=== PATIENT | male | born 1965 | race African-American/Black ===

== ENCOUNTER 2023-03-08 16:18 | Outpatient (CLI) | payer MEDICAID | END 2023-03-08 16:19 | disposition critical access hospital (66) | LOC: EMS 16:18 | DX: R47.1 Dysarthria and anarthria (principal); R53.1 Weakness; R29.810 Facial weakness | CPT/HCPCS: A0425; A0429; A0999 ==

== ENCOUNTER 2023-03-08 16:34 | Emergency (ER) | payer MEDICAID ==
--- NOTE | 2023-03-08 16:40 | ED Physician Documentation ---
PD HPI FOCAL NEURO - Stated complaint Stated Complaint: CODE STROKE - History obtained from History obtained from: EMS - Additional information Additional information: He reportedly has a history of stroke without deficits. His family went to the grocery store at 3 PM and he was in his normal condition. They returned around 4 and found him down on the ground with profound right-sided deficits. Patient is unable to give a history as he is mostly aphasic. He is in A-fib reportedly with a normal blood sugar prior to arrival. Review of his medications show that he is on Eliquis. PD PAST MEDICAL HISTORY - Allergies Allergies/Adverse Reactions: Allergies Allergy/AdvReac Type Severity Reaction Status Date / Time No Known Drug Allergies Allergy Verified 03/08/23 17:29 PD ED PE NORMAL - Vitals Vital signs reviewed: Yes - General General: No acute distress - HEENT HEENT: PERRL - Neck Neck: Supple, no meningeal sign, No bony TTP - Cardiac Cardiac: RRR, No murmur - Respiratory Respiratory: No respiratory distress, Clear bilaterally - Abdomen Abdomen: Non tender NIHSS - Time Time: 16:34 - Level of Consciousness Level of consciousness: (0) Alert, Keenly responsive LOC Questions: (2) Answers neither correct LOC Commands: (0) Performs both correctly - Gaze Best Gaze: (0) Normal - Visual Visual: (0) No loss - Facial Palsy Facial Palsy: (3) Complete paralysis - Motor Arms (both separate) Motor Arm (right): (4) No movement Motor Arm (left): (0) No drift - Motor Legs (both separate) Motor Leg (right): (2) Some effort against gravity Motor Leg (left): (0) No drift - Limb Ataxia Limb Ataxia: (0) Absent - Sensory Sensory: (1) Yqek-uk-vdjfeprr loss - Best Language Best Language: (2) Severe aphasia - Dysarthria Dysarthria: (2) Severe dysarthria - Extinction and Inattention (formally neg Extinction and inattention: (0) No abnormality - Total Score/Results Total Score/Result: 16 Results - Vitals Vitals: Vital Signs - 24 hr 03/08/23 03/08/23 03/08/23 16:54 17:30 18:33 Heart Rate 77 84 77 Respiratory 17 22 18 Rate Blood Pressure 145/103 H 164/114 H 156/76 H O2 Saturation 100 98 99 Oxygen O2 Source Room air - EKG (time done) 1647 EKG releavant findings:: EKG personally interpreted by author of this note. Relevant findings are: Rate: Rate (enter#) (72) Rhythm: Atrial fibrillation [place]: Normal QRS: Normal Ischemia: No: ST elevation c/w ischemia - Labs Labs: Laboratory Tests 03/08/23 03/08/23 03/08/23 16:50 16:50 16:50 WBC 4.7 L RBC 4.79 Hgb 14.6 Hct 46.4 MCV 96.9 H MCH 30.5 MCHC 31.5 L RDW 13.5 Plt Count 249 MPV 9.5 Neut # (Auto) 2.0 Lymph # (Auto) 2.1 [place] # (Auto) 0.4 Eos # (Auto) 0.1 Baso # (Auto) 0.0 Absolute Nucleated RBC 0.00 Nucleated RBC % 0.0 PT 13.3 H INR 1.2 Sodium 137 Potassium 4.0 Chloride 106 Carbon Dioxide 21 Anion Gap 10.0 BUN 15 Creatinine 1.0 Estimated GFR (MDRD) 77 L Glucose 125 H Calcium 9.0 Total Bilirubin 0.8 AST 36 ALT 38 Alkaline Phosphatase 62 Total Protein 7.2 Albumin 3.6 Globulin 3.6 Albumin/Globulin Ratio 1.0 Lipase 35 - Rads (name of study) CT angiography of the head and neck did show possible occlusion of the left M3 MCA. Relevant Findings:: Final report received, EMP independent interpretation of test CT of the head shows multiple areas of old encephalomalacia without bleed Relevant Findings:: Final report received, EMP independent interpretation of test PD Medical Decision Making - ED course ED course: 57-year-old gentleman presents for what appears to be an acute stroke with profound right-sided deficits. He is in A-fib and has Eliquis with his medications. Unable to query him as to compliance with that. After initial evaluation he went straight over to CT and we activated telestroke and I spoke with her neurologist, Dr. Gore who is seeing the patient immediately after return from CT. I did a pill count on his Eliquis, it was prescribed January 08 for 60 pills. So should almost be empty. There are still 49 out of 60 doses in it. Patient says he is compliant with it though. Or at least nods since he is aphasic. Neurologist wondered if we could get a factor Xa level, unfortunately the analyzer for that is down. subsequently arrived and says he has been compliant with his Eliquis but about 2 months ago went from twice daily down to daily. He had an older bottle and that is why the bottle we have at the bedside is still mostly full. Dr. Gore because of this did not feel tPA was appropriate. Recommended admission on aspirin and subsequent MRI. Subsequently the CT angiography came back with a branch MCA occlusion. I discussed again with Dr. Gore who arranged to have him excepted as a code IR to Dr. Almaraz's service at [facility]. - Critical Care Time(min): 45 Time Includes: Direct patient care, Review records, Reassess patient, Document care, Coordinate care, Medical consult, Family consult for tx dec Data interpretation: Labs, Pulse ox, See progress note Procedures included in critical care time: Peripheral IV Procedures excluded from critical care time: EKG Departure - Departure Disposition: 02 Transfer Acute Care Hosp Clinical Impression: CVA (cerebral vascular accident) Qualifiers: CVA mechanism: embolism Precerebral and cerebral artery: middle cerebral artery Laterality of affected vessel: left Qualified Code(s): I63.412 - Cerebral infarction due to embolism of left middle cerebral artery Condition: Critical
[2023-03-08] MEDS ORDERED: iohexoL-300 100 ML VIAL IVP ONE (16:51)
[2023-03-08 16:56] LABS: BASOPHILS % (AUTO) 0.6 %; EOSINOPHILS # (AUTO) 0.1 10^3/uL (0.0-0.7); EOSINOPHILS % (AUTO) 1.9 %; HCT - HEMATOCRIT 46.4 % (42.0-52.0); HGB - HEMOGLOBIN 14.6 g/dL (14.0-18.0); LYMPHOCYTES # (AUTO) 2.1 10^3/uL (1.5-3.5); LYMPHOCYTES % (AUTO) 45.9 %; MEAN CORPUSCULAR HEMOGLOBIN 30.5 pg (27.0-31.0); MEAN CORPUSCULAR HGB CONC 31.5 g/dL (32.0-36.0); MEAN CORPUSCULAR VOLUME 96.9 fL (80.0-94.0); MEAN PLATELET VOLUME 9.5 fL (7.4-11.4); MONOCYTES # (AUTO) 0.4 10^3/uL (0.0-1.0); MONOCYTES % (AUTO) 7.9 %; NEUTROPHILS % (AUTO) 43.5 %; PLT - PLATELET COUNT 249 10^3/uL (130-450); RED BLOOD COUNT 4.79 10^6/uL (4.70-6.10); RED CELL DISTRIBUTION WIDTH 13.5 % (12.0-15.0); WHITE BLOOD COUNT 4.7 x10^3/uL (4.8-10.8)
--- NOTE | 2023-03-08 17:06 | CT Report ---
PROCEDURE: Head W/O Stroke Protocol INDICATIONS: Neuro deficit, acute, stroke suspected TECHNIQUE: Noncontrast 4.5 mm thick angled axial sections acquired from the foramen magnum to the vertex, with c oronal reformats. For radiation dose reduction, the following was used: automated exposure control, adjustment of mA and/or kV according to patient size. COMPARISON: None. FINDINGS: Image quality: Excellent. CSF spaces: Basal cisterns are patent. No extra-axial fluid collections. Ventricles are normal in size and shape. Brain: No midline shift. No intracranial masses or hemorrhage. There are large areas in bilateral parietal and right temporal region of encephalomalacia and cortical volume loss consistent with prior strokes. There are lacunar infarcts in bilateral anterior frontal white matter tracts and left basal ganglia. No definite acute edema. Skull and face: Calvarium and visualized facial bones are intact, without suspicious lesions. Sinuses: Visualized sinuses are clear. Mastoids are hypoplastic. IMPRESSION: 1. No acute hemorrhage. 2. Large, remote right temporoparietal infarct. 3. Moderate-sized left parietal infarct with cortical volume loss. 3. No definite acute edema. 4. Findings of a background of moderate chronic microvascular ischemia. 5. Discussed with Dr. Swann in the emergency room at 1600 hours [place] daylight time. This study fulfills neurological imaging criteria for inclusion or exclusion of acute stroke therapie s based on available published neurological imaging guidelines. Reviewed by: Josselin Pierce MD on 03/08/2023 4:05 PM ELAINE Approved by: Josselin Pierce MD on 03/08/2023 4:05 PM ELAINE Station ID: [id number]
[2023-03-08 17:07] LABS: INR 1.2 (0.8-1.2); PT - PROTHROMBIN TIME 13.3 secs (9.9-12.6)
[2023-03-08 17:14] LABS: ALBUMIN 3.6 g/dL (3.2-5.5); BILIRUBIN,TOTAL 0.8 mg/dL (0.2-1.0); TOTAL PROTEIN 7.2 g/dL (6.7-8.2)
--- NOTE | 2023-03-08 17:17 | CT Report ---
PROCEDURE: ANGIO HEAD W/WO INDICATIONS: CVA CONTRAST: 80 ml omni 300 TECHNIQUE: After the administration of intravenous contrast, 1 mm thick sections acquired through the [place] of [place]. Postcontrast 4.5 mm thick sections then re-acquired from the foramen magnum to the vertex. 3-dimensional mpgcivw-tlsgwjwof-uzyyuzgwuv (MIP) and/or volume rendering reformats were acquired of [facility] central intracranial vasculature. For radiation dose reduction, the following was used: automate d exposure control, adjustment of mA and/or kV according to patient size. COMPARISON: None FINDINGS: Image quality: Excellent. Anterior circulation: Intracranial internal carotid arteries are normal in size and flow. The flow within the paired anterior cerebral arteries is normal and symmetric. Middle cerebral arteries and M1 and proximal M2 are patent. Extremely diminutive left M3 segment with probable occlusion at the dist al M2 segment. Right middle cerebral artery is patent. The anterior communicating artery is seen. No aneurysms are seen. Posterior circulation: Visualized portions of the vertebral arteries demonstrate normal caliber, and join to form a normal appearing basilar artery. Flow within the posterior cerebral arteries is norm al and symmetric. No aneurysms are seen. CSF spaces: Ventricles are normal in size and shape. Basal cisterns are patent. No extra-axial flu id collections. Brain: No midline shift. No intracranial bleeds or masses. [place]-white matter interface appears int act. Skull and face: Calvarium and facial bones appear intact, without suspicious lesions. Sinuses: Visualized sinuses and mastoids are clear. IMPRESSION: 1. A left M3 branch appears extremely diminutive and likely occluded. 2. No aneurysm. Reviewed by: Josselin Pierce MD on 03/08/2023 4:16 PM ELAINE Approved by: Josselin Pierce MD on 03/08/2023 4:16 PM AKAJIT [id number]
[2023-03-08] MEDS ORDERED: ASPIRIN 300 MG SUPP PR STA (17:19)
--- NOTE | 2023-03-08 17:22 | CT Report ---
PROCEDURE: ANGIO NECK W INDICATIONS: CVA CONTRAST: 80 ml omni 300 TECHNIQUE: After the administration of intravenous contrast, 1.5 mm axial sections acquired from the aortic arch to the [place] of [place]. Coronal 3-D maximum intensity projection (MIP) and/or volume rendering ref ormats were then performed. For radiation dose reduction, the following was used: automated exposur e control, adjustment of mA and/or kV according to patient size. COMPARISON: None. FINDINGS: Image quality: Excellent. Carotid system: The great vessels demonstrate a conventional anatomy as they arise from the aortic a rch. The origins of the common carotid arteries appear patent. The common carotid arteries demonstr ate normal calibers and courses. The bifurcation regions appear normal bilaterally. The internal ca rotid arteries demonstrate normal caliber and course. Posterior circulation: The origins of the vertebral arteries appear patent. The more superior porti ons of the vertebral arteries demonstrate normal course and caliber. They join to form a normal appe aring basilar artery. Soft tissues: Visualized neck soft tissues demonstrate no suspicious abnormalities. The thyroid is normal in size and there are no incidental findings. Bones: No suspicious bony lesions. Visualized cervical spine appears normally aligned. IMPRESSION: 1. No evidence of significant carotid stenosis or dissection. 2. Normal vertebral arteries without dissection. The estimate of stenosis included in the report of the imaging study was calculated using the NASCET method Reviewed by: Josselin Pierce MD on 03/08/2023 4:20 PM ELAINE Approved by: Josselin Pierce MD on 03/08/2023 4:20 PM ELAINE Station ID: [id number]
[2023-03-08 18:34] VITALS: BP 156/76
== END 2023-03-08 18:52 | disposition short-term general hospital (02) ==
LOC: ED 16:34
DX: I63.412 Cerebral infarction due to embolism of left middle cerebral artery (principal); R29.716 NIHSS score 16; I48.91 Unspecified atrial fibrillation; Z79.01 Long term (current) use of anticoagulants
CPT/HCPCS: 36415; 70450; 70496; 70498; 80053; 83690; 85025; 85610; 93005; 99285; 99291; A9270; Q9967; 85520

== ENCOUNTER 2023-04-17 10:14 | Outpatient (CLI) | payer MEDICAID ==
[2023-04-17 12:56] LABS: BASOPHILS % (AUTO) 0.9 %; EOSINOPHILS # (AUTO) 0.2 10^3/uL (0.0-0.7); EOSINOPHILS % (AUTO) 3.5 %; HCT - HEMATOCRIT 46.6 % (42.0-52.0); LYMPHOCYTES # (AUTO) 2.7 10^3/uL (1.5-3.5); LYMPHOCYTES % (AUTO) 62.3 %; MEAN CORPUSCULAR HEMOGLOBIN 30.4 pg (27.0-31.0); MEAN CORPUSCULAR HGB CONC 32.2 g/dL (32.0-36.0); MEAN CORPUSCULAR VOLUME 94.5 fL (80.0-94.0); MEAN PLATELET VOLUME 9.7 fL (7.4-11.4); MONOCYTES # (AUTO) 0.3 10^3/uL (0.0-1.0); MONOCYTES % (AUTO) 6.3 %; NEUTROPHILS # (AUTO) 1.2 10^3/uL (1.5-6.6); NEUTROPHILS % (AUTO) 26.8 %; PLT - PLATELET COUNT 242 10^3/uL (130-450); RED BLOOD COUNT 4.93 10^6/uL (4.70-6.10); RED CELL DISTRIBUTION WIDTH 11.8 % (12.0-15.0); WHITE BLOOD COUNT 4.3 x10^3/uL (4.8-10.8)
[2023-04-17 13:01] LABS: CREATININE,URINE 220.1 mg/dL; MICROALBUM/CREATININE RATIO,UR 13.6 ug/mg (<30.0)
[2023-04-17 13:23] LABS: ESTIMATED AVERAGE GLUCOSE 117 mg/dL (70-100); HEMOGLOBIN A1c% 5.7 % (4.27-6.07)
[2023-04-17 13:31] LABS: THYROID STIMULATING HORMONE 1.2 uIU/mL (0.34-5.60)
[2023-04-17 13:44] LABS: ALBUMIN 3.4 g/dL (3.2-5.5); ALBUMIN/GLOBULIN RATIO 0.8 (1.0-2.2); ALKALINE PHOSPHATASE 78 IU/L (42-121); ALT ALANINE AMINOTRANSFERASE 137 IU/L (10-60); AST ASPARTATE AMINOTRANSFERASE 50 IU/L (10-42); BILIRUBIN,TOTAL 0.6 mg/dL (0.2-1.0); BUN - BLOOD UREA NITROGEN 11 mg/dL (6-20); CALCIUM 9.3 mg/dL (8.5-10.3); CARBON DIOXIDE - CO2 27 mmol/L (21-32); CHLORIDE 108 mmol/L (101-111); CHOL/HDL RATIO 2.4 (<5.0); CHOLESTEROL 95 mg/dL; CREATININE 1.1 mg/dL (0.6-1.2); GFR - MDRD 84 (>89); GLUCOSE 125 mg/dL (70-100); HDL CHOLESTEROL 39 mg/dL; LDL CHOLESTEROL,CALCULATED 45 mg/dL; LDL/HDL RATIO 1.2 (<3.6); SODIUM 141 mmol/L (135-145); TOTAL PROTEIN 7.6 g/dL (6.7-8.2); TRIGLYCERIDES 53 mg/dL; VLDL CHOLESTEROL 11 mg/dL
== END 2023-04-17 10:15 | disposition home or self-care (01) ==
LOC: LAB.N 10:14
PROVIDERS: ATTEND Nurse Practitioner
DX: I10 Essential (primary) hypertension (principal); E78.5 Hyperlipidemia, unspecified; R73.03 Prediabetes; Z12.5 Encounter for screening for malignant neoplasm of prostate
CPT/HCPCS: 36415; 80053; 80061; 82043; 82570; 83036; 83721; 84153; 84443; 85025

== ENCOUNTER 2023-09-22 10:26 | Outpatient (CLI) | payer MEDICAID | END 2023-09-22 10:27 | disposition critical access hospital (66) | LOC: EMS 10:26 | DX: S01.511A Laceration without foreign body of lip, initial encounter (principal); R22.0 Localized swelling, mass and lump, head; W10.1XXA Fall (on)(from) sidewalk curb, initial encounter; Y92.414 Local residential or business street as the place of occurrence of the external cause | CPT/HCPCS: A0425; A0429; A0999 ==

== ENCOUNTER 2023-09-22 10:48 | Emergency (ER) | payer MEDICAID ==
[2023-09-22] MEDS ORDERED: LIDOCAINE-EPINEPH-TETRACAINE 3 ML SYRINGE TOP STA (11:04)
[2023-09-22 11:15] LABS: BASOPHILS % (AUTO) 0.6 %; EOSINOPHILS # (AUTO) 0.1 10^3/uL (0.0-0.7); EOSINOPHILS % (AUTO) 2.3 %; HCT - HEMATOCRIT 45.4 % (42.0-52.0); HGB - HEMOGLOBIN 14.5 g/dL (14.0-18.0); LYMPHOCYTES # (AUTO) 2.2 10^3/uL (1.5-3.5); LYMPHOCYTES % (AUTO) 46.7 %; MEAN CORPUSCULAR HEMOGLOBIN 29.5 pg (27.0-31.0); MEAN CORPUSCULAR HGB CONC 31.9 g/dL (32.0-36.0); MEAN CORPUSCULAR VOLUME 92.3 fL (80.0-94.0); MEAN PLATELET VOLUME 9.1 fL (7.4-11.4); MONOCYTES # (AUTO) 0.3 10^3/uL (0.0-1.0); MONOCYTES % (AUTO) 6.3 %; NEUTROPHILS # (AUTO) 2.1 10^3/uL (1.5-6.6); NEUTROPHILS % (AUTO) 43.9 %; PLT - PLATELET COUNT 234 10^3/uL (130-450); RED BLOOD COUNT 4.92 10^6/uL (4.70-6.10); RED CELL DISTRIBUTION WIDTH 12.8 % (12.0-15.0); WHITE BLOOD COUNT 4.8 x10^3/uL (4.8-10.8)
[2023-09-22 11:25] LABS: INR 1.8 (0.8-1.2); PT - PROTHROMBIN TIME 19.5 secs (9.9-12.6)
[2023-09-22 11:35] LABS: ALBUMIN/GLOBULIN RATIO 1.1 (1.0-2.2); BILIRUBIN,TOTAL 0.8 mg/dL (0.2-1.0); CALCIUM 9.6 mg/dL (8.5-10.3); CREATININE 1.1 mg/dL (0.6-1.3); POTASSIUM 3.9 mmol/L (3.5-4.5); TOTAL PROTEIN 7.5 g/dL (6.4-8.9)
[2023-09-22] MEDS ORDERED: PROPARACAINE 0.5% OPHTH DROPS 15 ML LEFTEYE STA (11:41)
--- NOTE | 2023-09-22 11:46 | CT Report ---
PROCEDURE: HEAD WO INDICATIONS: fall on xarelto TECHNIQUE: Noncontrast 4.5 mm thick angled axial sections acquired from the foramen magnum to the vertex. For r adiation dose reduction, the following was used: automated exposure control, adjustment of mA and/or kV according to patient size. COMPARISON: None. FINDINGS: Image quality: Good CSF spaces: Basal cisterns are patent. Lateral ventricles are symmetric. Volume: Vascular calcifications. Periventricular white matter disease is commonly seen with chronic m icroangiopathy. Volume loss is present. These findings are moderate. Brain: Bilateral frontoparietal hypoattenuation likely sequela of prior injury. A focus of hyperdensi ty is seen on the right (2). No definite acute hemorrhage. Craniofacial structures: Maxillofacial findings are separately dictated. IMPRESSION: No definite acute intracranial hemorrhage. Bilateral frontoparietal areas of hypoattenuation likely f rom prior parenchymal injury, most commonly infarct. A focus of hyperdensity is seen in the posterior inferior portion on the right, which may represent mineralization or calcification, less likely a sm all focus of hemorrhage. Maxillofacial fracture findings separately dictated. Reviewed by: Yair Limon MD on 09/22/2023 11:45 AM PST Approved by: Yair Limon MD on 09/22/2023 11:45 AM PST Station ID: [id number]
[2023-09-22] MEDS ORDERED: TETANUS/DIPHTHERIA/PERTUSSIS 0.5 ML SYRINGE IM ONE (11:53)
--- NOTE | 2023-09-22 11:53 | ED Physician Documentation ---
PD HPI HEAD INJURY - Stated complaint Stated Complaint: GLF - Chief complaint Chief Complaint: Trauma Hd/Nk - History obtained from History obtained from: Patient, EMS - Additional information Additional information: Patient is a 57-year-old male with a history of A-fib On Xarelto presenting for evaluation after a ground-level fall. He has a history of prior strokes. He was out for a walk which he has been doing recently and was calling his near the end of his walk. He reports feeling some dizziness prior to falling. He is unsure of exactly what made him fall. He is unsure if he had LOC but recalls falling.There were bystanders that witnessed the fall per EMS. Patient reports only pain to the face. He does have a laceration to the chin and bruising around the left eye. He is supposed to wear glasses but did not have them on today. He does have residual deficits from prior stroke. Review of Systems Constitutional: denies: Fever Cardiac: denies: Chest pain / pressure Respiratory: denies: Dyspnea GI: denies: Abdominal Pain Neurologic: reports: Syncope, Head injury PD PAST MEDICAL HISTORY - Past Medical History Past Medical History: Yes Cardiovascular: Hypertension Neuro: CVA Endocrine/Autoimmune: None Psych: None Musculoskeletal: Osteoarthritis - Past Surgical History Past Surgical History: No - Present Medications Home Medications: Ambulatory Orders Medication Instructions Recorded Confirmed Amlodipine Besylate [Norvasc] 10 mg PO DAILY 09/22/23 09/22/23 Aspirin Chewable [[place] 81 mg PO DAILY 09/22/23 09/22/23 Aspirin] Atorvastatin Calcium [Lipitor] 80 mg PO DAILY 09/22/23 09/22/23 Lisinopril [Zestril] 20 mg PO DAILY 09/22/23 09/22/23 Rivaroxaban [Xarelto] 20 mg PO DAILY 09/22/23 09/22/23 Tamsulosin HCl [Flomax] 1 cap PO DAILY 09/22/23 09/22/23 - Allergies Allergies/Adverse Reactions: Allergies Allergy/AdvReac Type Severity Reaction Status Date / Time No Known Drug Allergies Allergy Verified 09/22/23 10:57 - Social History Does the pt smoke?: No Smoking Status: Never smoker Does the pt drink ETOH?: No Does the pt have substance abuse?: No - Immunizations Immunizations are current?: Yes - POLST Patient has POLST: No PD ED PE NORMAL - General General: Alert and oriented X 3, No acute distress, Well developed/nourished - HEENT HEENT: PERRL, EOMI, Ears normal, Moist mucous membranes, Pharynx benign, Other (Left periorbital contusion with mild proptosis of the left eye, 2 cm laceration to chin) - Neck Neck: Supple, no meningeal sign, No bony TTP - Cardiac Cardiac: RRR, Strong equal pulses - Respiratory Respiratory: No respiratory distress, Clear bilaterally - Abdomen Abdomen: Normal bowel sounds, Soft, Non tender, Non distended - Back Back: No spinal TTP - Extremities Extremities: No deformity, Normal ROM s pain - Neuro Neuro: Alert and oriented X 3, 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 No: No motor deficit (Mild weakness in right hand compared to left which per patient is also his baseline), Normal speech (Slightly slurred speech which per the at the bedside is his baseline) PD ED PE EXPANDED - Eyes Eyes: Visual acuity - see nn (B: 20/40; R: 20/30; L 20/50), Other (IOP 26,27) Results - Vitals Vitals: Vital Signs - 24 hr 09/22/23 09/22/23 09/22/23 10:49 11:54 12:00 Temperature 36.3 C L 36.8 C Heart Rate 88 63 76 Respiratory 20 18 19 Rate Blood Pressure 147/114 H 147/94 H 123/85 H O2 Saturation 99 98 100 09/22/23 09/22/23 13:00 13:30 Temperature 36.8 C Heart Rate 80 71 Respiratory 17 16 Rate Blood Pressure 167/100 H 160/100 H O2 Saturation 98 100 Oxygen O2 Source Room air - EKG (time done) 1139 EKG releavant findings:: EKG personally interpreted by author of this note. Relevant findings are: Rate 70, atrial fibrillation, no STEMI - Labs Labs: Laboratory Tests 09/22/23 09/22/23 09/22/23 11:08 11:08 11:08 WBC 4.8 RBC 4.92 Hgb 14.5 Hct 45.4 MCV 92.3 MCH 29.5 MCHC 31.9 L RDW 12.8 Plt Count 234 MPV 9.1 Neut # (Auto) 2.1 Lymph # (Auto) 2.2 [place] # (Auto) 0.3 Eos # (Auto) 0.1 Baso # (Auto) 0.0 Absolute Nucleated RBC 0.00 Nucleated RBC % 0.0 PT 19.5 H INR 1.8 H Sodium 139 Potassium 3.9 Chloride 105 Carbon Dioxide 27 Anion Gap 7.0 BUN 11 Creatinine 1.1 Estimated GFR (MDRD) 84 L Glucose 149 H Calcium 9.6 Total Bilirubin 0.8 AST 30 ALT 63 H Alkaline Phosphatase 89 Troponin I High Sens Total Protein 7.5 Albumin 4.0 Globulin 3.5 Albumin/Globulin Ratio 1.1 09/22/23 11:08 WBC RBC Hgb Hct MCV MCH MCHC RDW Plt Count MPV Neut # (Auto) Lymph # (Auto) [place] # (Auto) Eos # (Auto) Baso # (Auto) Absolute Nucleated RBC Nucleated RBC % PT INR Sodium Potassium Chloride Carbon Dioxide Anion Gap BUN Creatinine Estimated GFR (MDRD) Glucose Calcium Total Bilirubin AST ALT Alkaline Phosphatase Troponin I High Sens 8.1 Total Protein Albumin Globulin Albumin/Globulin Ratio Procedures - Laceration (location) Chin Length in cm: 2 Wound type: Curved Anesthesia: LET Skin layer closure: Prolene, Size #-0 - enter number (6-0), Sutures - enter # (3) Other: Patient tolerated well, No complications, Neurovascular intact, Tetanus booster given PD Medical Decision Making - ED course Complexity details: reviewed results, re-evaluated patient, d/w patient ED course: IOP 26-27 Patient is a 57-year-old male presenting for evaluation after ground-level fall. After obtaining further history from the patient it appears that he may have had a syncopal episode as he reports feeling dizzy while trying to call his and then cannot recall what happened next. He does have obvious facial trauma with left periorbital bruising and swelling as well as laceration to chin. He is on Xarelto. CT head, cervical spine maxillofacial were obtained and reviewed. Patient's visual acuity appears to be grossly intact with intraocular pressure of 26-27 in the left eye. EOMI and pupils are symmetric, round and reactive. CTs were obtained and reviewed and a CT a left retrobulbar hemorrhage. I consulted with [facility]. Ophthalmology shares my concerns and accepts the patient in transfer. Patient to be transferred by air given need for close Reevaluation of his eye injury. Patient did have a chin laceration that was sutured closed. Labs reviewed including CBC, chemistries, troponin. Patient is in A-fib which she has a history of. Patient and counseled regarding treatment plan as well as need for transfer and in agreement. 1218 - D/W Dr. Glover ([facility]) - Accepts for transfer. - Critical Care Time(min): 35 Departure - Departure Disposition: 02 Transfer Acute Care Hosp Clinical Impression: Retrobulbar hemorrhage, Orbital wall fracture, Chin laceration, Anticoagulant long-term use, Syncope, Chronic atrial fibrillation Condition: Fair Forms: PCP List Discharge Date/Time: 09/22/23 13:48
--- NOTE | 2023-09-22 11:54 | CT Report ---
PROCEDURE: MAXILLOFACIAL WO INDICATIONS: fall on xarelto TECHNIQUE: Noncontrast 1.5 mm thick axial images acquired from the mandible through the frontal sinuses, with co hiren and sagittal reformatting. For radiation dose reduction, the following was used: automated ex posure control, adjustment of mA and/or kV according to patient size. COMPARISON: 02/28/2023 CT FINDINGS: Image quality: Good Bones: Mild to moderately displaced fractures of the medial and inferior left orbital santa. There is also comminution. Nasal bone and septum are intact. Mandible is intact. Zygomatic arches and pterygo id plates are intact. No skull base fracture. Sinuses and mastoids: Left sinus hemorrhage. Hypoplastic mastoids, possibly with small fluid, as befo re. The middle ears are clear. Soft tissues: Soft tissue contusion of the left face. Left proptosis. There is trace retro-orbital in traconal hemorrhage. Moderate surrounding extraconal and preseptal hemorrhage. Prominent cervical lym ph nodes are seen bilaterally, indeterminate, possibly reactive. Elongated calcified styloid processes of the temporal bone again seen. Possible right salivary gland ductal large calcifications also again seen. Brain: Intracranial and spine findings are separately dictated. IMPRESSION: Left medial and inferior orbital wall comminuted and displaced fractures. Associated sinus hemorrhage and hematoma/contusion around the left orbit. Left proptosis. Reviewed by: Yair Limon MD on 09/22/2023 11:52 AM PST Approved by: Yair Limon MD on 09/22/2023 11:52 AM PST Station ID: [id number]
--- NOTE | 2023-09-22 11:55 | CT Report ---
PROCEDURE: CERVICAL SPINE WO INDICATIONS: fall on xarelto TECHNIQUE: Noncontrast 3 mm thick sections acquired from the skull base to the T4 level. Sagittal and coronal r eformats were then constructed. For radiation dose reduction, the following was used: automated exp osure control, adjustment of mA and/or kV according to patient size. COMPARISON: None. FINDINGS: Image quality: Good Bones: Straightening of normal cervical lordosis. Trace anterolisthesis of C2 on C3 is probably degen erative. Vertebral body heights are well-maintained. No traumatic subluxation. Soft tissues: Facial findings are separately dictated. No actionable thyroid nodule identified. No ap ical pneumothorax. IMPRESSION: Facial findings are separately dictated. No acute fracture or traumatic subluxation of the cervical s pine. Reviewed by: Yair Limon MD on 09/22/2023 11:54 AM PST Approved by: Yair Limon MD on 09/22/2023 11:54 AM PST Station ID: [id number]
[2023-09-22 13:50] VITALS: BP 160/100; O2SAT 100
== END 2023-09-22 13:48 | disposition short-term general hospital (02) ==
LOC: EDUNIT# → ED 10:48
DX: S06.2XAA Diffuse traumatic brain injury with loss of consciousness status unknown, initial encounter (principal); S02.85XA Fracture of orbit, unspecified, initial encounter for closed fracture; S01.81XA Laceration without foreign body of other part of head, initial encounter; W01.0XXA Fall on same level from slipping, tripping and stumbling without subsequent striking against object, initial encounter; Y93.01 Activity, walking, marching and hiking; Y92.89 Other specified places as the place of occurrence of the external cause; R55 Syncope and collapse; I48.20 Chronic atrial fibrillation, unspecified; I10 Essential (primary) hypertension; Z79.01 Long term (current) use of anticoagulants; Z79.82 Long term (current) use of aspirin; Z79.899 Other long term (current) drug therapy; Z23 Encounter for immunization
CPT/HCPCS: 12011; 36415; 70450; 70486; 72125; 80053; 84484; 85025; 85610; 90471; 90715; 93005; 99285; 99291; J3490

== ENCOUNTER 2023-11-23 11:28 | Outpatient (CLI) | payer MEDICAID ==
[2023-11-23 18:15] LABS: BASOPHILS # (AUTO) 0.1 10^3/uL (0.0-0.1); BASOPHILS % (AUTO) 1.2 %; EOSINOPHILS # (AUTO) 0.2 10^3/uL (0.0-0.7); EOSINOPHILS % (AUTO) 3.3 %; HCT - HEMATOCRIT 48.1 % (42.0-52.0); HGB - HEMOGLOBIN 14.3 g/dL (14.0-18.0); LYMPHOCYTES # (AUTO) 3.2 10^3/uL (1.5-3.5); LYMPHOCYTES % (AUTO) 62.2 %; MEAN CORPUSCULAR HEMOGLOBIN 28.5 pg (27.0-31.0); MEAN CORPUSCULAR HGB CONC 29.7 g/dL (32.0-36.0); MEAN CORPUSCULAR VOLUME 95.8 fL (80.0-94.0); MEAN PLATELET VOLUME 9.6 fL (7.4-11.4); MONOCYTES # (AUTO) 0.4 10^3/uL (0.0-1.0); MONOCYTES % (AUTO) 8.1 %; NEUTROPHILS # (AUTO) 1.3 10^3/uL (1.5-6.6); PLT - PLATELET COUNT 262 10^3/uL (130-450); RED BLOOD COUNT 5.02 10^6/uL (4.70-6.10); RED CELL DISTRIBUTION WIDTH 13.1 % (12.0-15.0); WHITE BLOOD COUNT 5.2 x10^3/uL (4.8-10.8)
[2023-11-23 18:24] LABS: ALBUMIN/GLOBULIN RATIO 1.1 (1.0-2.2); ALKALINE PHOSPHATASE 86 IU/L (42-121); ALT ALANINE AMINOTRANSFERASE 157 IU/L (10-60); AST ASPARTATE AMINOTRANSFERASE 64 IU/L (10-42); BILIRUBIN,TOTAL 0.6 mg/dL (0.2-1.0); BUN - BLOOD UREA NITROGEN 13 mg/dL (6-20); CALCIUM 9.5 mg/dL (8.5-10.3); CARBON DIOXIDE - CO2 28 mmol/L (21-32); CHLORIDE 108 mmol/L (101-111); CHOL/HDL RATIO 2.1 (<5.0); CHOLESTEROL 107 mg/dL; GFR - MDRD 93 (>89); GLUCOSE 108 mg/dL (74-104); HDL CHOLESTEROL 52 mg/dL; LDL CHOLESTEROL,CALCULATED 47 mg/dL; LDL/HDL RATIO 0.9 (<3.6); POTASSIUM 3.9 mmol/L (3.5-4.5); SODIUM 143 mmol/L (135-145); TOTAL PROTEIN 7.5 g/dL (6.4-8.9); TRIGLYCERIDES 41 mg/dL (48-352); VLDL CHOLESTEROL 8 mg/dL
[2023-11-23 21:56] LABS: ESTIMATED AVERAGE GLUCOSE 117 mg/dL (70-100); HEMOGLOBIN A1c% 5.7 % (4.27-6.07)
== END 2023-11-23 11:29 | disposition home or self-care (01) ==
LOC: LAB.N 11:28
PROVIDERS: ATTEND Physician Assistant
DX: I48.21 Permanent atrial fibrillation (principal); E78.5 Hyperlipidemia, unspecified; R73.03 Prediabetes
CPT/HCPCS: 36415; 80053; 80061; 83036; 83721; 85025

== ENCOUNTER 2024-01-19 14:30 | Outpatient (CLI) | payer MEDICAID ==
--- NOTE | 2024-01-19 15:43 | XRAY Report ---
PROCEDURE: Shoulder 3 View LT INDICATIONS: LEFT SHOULDER PAIN TECHNIQUE: 5 views of the shoulder were acquired. COMPARISON: No relevant comparisons at time of dictation. FINDINGS: Bones: No fractures or dislocations. No suspicious bony lesions. Visualized ribs appear intact. Glenohumeral joint space narrowing with osteophytosis. Soft tissues: No suspicious soft tissue calcifications. The visualized lungs are within normal limi ts. IMPRESSION: No acute bony abnormality. Moderate glenohumeral osteoarthritis. Reviewed by: Tera Rowe MD on 01/19/2024 3:42 PM PDT Approved by: Tera Rowe MD on 01/19/2024 3:42 PM PDT Station ID: [id number]
== END 2024-01-19 23:59 | disposition home or self-care (01) ==
LOC: DI.WOS 14:30
PROVIDERS: ATTEND Physician Assistant Surgical
DX: M19.012 Primary osteoarthritis, left shoulder (principal)

== ENCOUNTER 2024-03-31 10:19 | Outpatient (CLI) | payer MEDICAID ==
[2024-03-31 12:20] LABS: ALBUMIN 4.1 g/dL (3.2-5.5); ALBUMIN/GLOBULIN RATIO 1.2 (1.0-2.2); BILIRUBIN,TOTAL 0.8 mg/dL (0.2-1.0); CALCIUM 9.8 mg/dL (8.5-10.3); TOTAL PROTEIN 7.4 g/dL (6.4-8.9)
== END 2024-03-31 10:20 | disposition home or self-care (01) ==
LOC: LAB.N 10:19
PROVIDERS: ATTEND Nurse Practitioner
DX: R74.8 Abnormal levels of other serum enzymes (principal); R97.20 Elevated prostate specific antigen [PSA]
CPT/HCPCS: 36415; 80053; 84153

== ENCOUNTER 2024-07-01 09:04 | Outpatient (CLI) | payer MEDICAID ==
[2024-07-01 13:07] LABS: CREATININE,URINE 265.7 mg/dL; MICROALBUM/CREATININE RATIO,UR 14.3 ug/mg (<30.0); MICROALBUMIN,URINE 3.8 mg/dL
[2024-07-01 13:17] LABS: ESTIMATED AVERAGE GLUCOSE 120 mg/dL (70-100); HEMOGLOBIN A1c% 5.8 % (4.27-6.07)
== END 2024-07-01 09:05 | disposition home or self-care (01) ==
LOC: LAB.N 09:04
PROVIDERS: ATTEND Nurse Practitioner
DX: E11.9 Type 2 diabetes mellitus without complications (principal)
CPT/HCPCS: 36415; 82043; 82570; 83036